=== PATIENT | female | born 1970 | race Caucasian/White ===

== ENCOUNTER 2023-04-16 06:35 | Day surgery (SDC) | payer BC, MEDICAID ==
[2023-04-16] MEDS ORDERED: Dextrose 5%-0.45% NaCl 1,000 ML IV SCH (07:30)
[2023-04-16] MEDS ORDERED: fentaNYL 100 MCG/2 ML SDV ONE (07:34)
[2023-04-16] MEDS ORDERED: Midazolam 1 MG/ML 2 ML SDV ONE (07:34)
[2023-04-16] MEDS ORDERED: fentaNYL 100 MCG/2 ML SDV IV ONE ×3 (08:09→08:20)
[2023-04-16] MEDS ORDERED: Midazolam 1 MG/ML 2 ML SDV IV ONE ×6 (08:10→08:17)
== END 2023-04-16 10:20 | disposition home or self-care (01) ==
LOC: DL.ENDO 06:35
PROVIDERS: ATTEND Internal Medicine Gastroenterology
DX: Z12.11 Encounter for screening for malignant neoplasm of colon (principal); K57.30 Diverticulosis of large intestine without perforation or abscess without bleeding; J45.909 Unspecified asthma, uncomplicated; F17.210 Nicotine dependence, cigarettes, uncomplicated; Z88.0 Allergy status to penicillin; Z90.710 Acquired absence of both cervix and uterus; Z86.010 Personal history of colon polyps
CPT/HCPCS: 45378; J2250; J3010; J7042